=== PATIENT | female | born 1955 | race American Indian/Alaskan Native ===

== ENCOUNTER 2017-09-25 20:40 | Emergency (ER) | payer MEDICARE ==
[2017-09-25] MEDS ORDERED: NACL 0.9% 1000 ML 1,000 ML IV ONE (20:56)
[2017-09-25] MEDS ORDERED: VASELINE LIP THERAPY TP PRN (20:58)
[2017-09-25] MEDS ORDERED: ARTIFICIAL TEARS OPHTH OINT OU PRN (20:58)
[2017-09-25] MEDS ORDERED: NACL 0.9% 500 ML IV SCH (21:00)
--- NOTE | 2017-09-25 21:04 | Emergency Department Report ---
ED CPR HPI - General Stated Complaint: UNRESPONSIVE Time Seen by Provider: 09/25/17 20:40 Source: family Mode of arrival: Wheelchair Limitations: Altered Mental Status, Physical Limitation, Other (clinical situation) - History of Present Illness Initial Comments: She is 60-year-old female multiple problems was brought by family POV for decreased responsiveness and low blood pressure. On initial presentation patient was found to be in full arrest. Per family member patient began complaining of abdominal pain and not feeling well all day today and patient recently started dialysis 4 weeks ago. And had a vas cath placed in her right chest 4 weeks ago MD Complaint: found unresponsive, stopped breathing, collapsed during rest -: minute(s) Place: home, other Bystander CPR Performed: No AED Applied by Bystander/Pipe Fitter Soft Copper: No ROSC in the Field: No Associated Symptoms: abdominal pain - Related Data Home Medications Medication Instructions Recorded Confirmed Last Taken Aspirin [Aspirin TAB] 325 mg PO DAILY 06/11/13 06/11/13 06/10/13 09:00 325 Previous Rx's Medication Instructions Recorded Last Taken Type Amlodipine Besylate [Norvasc] 5 mg PO DAILY #30 tab 06/19/13 Unknown Rx Calcium Carbonate [Tums] 2,000 mg PO Q6H #120 tablet 06/19/13 Unknown Rx Ergocalciferol [Vitamin D2] 50,000 unit PO WeSa@1000 #60 06/19/13 Unknown Rx capsule Magnesium Oxide [Mag-Ox] 1,600 mg PO BID #240 tablet 06/19/13 Unknown Rx Sodium Bicarbonate 650 mg PO TID #90 tablet 06/19/13 Unknown Rx Allergies Allergy/AdvReac Type Severity Reaction Status Date / Time No Known Allergies Allergy Unverified 06/11/13 16:39 ED Review of Systems ROS: Stated complaint: UNRESPONSIVE Other details as noted in HPI Comment: Unobtainable due to pts medical conditions ED Past Medical Hx - Past Medical History Previous Medical History?: Yes Hx Hypertension: Yes Hx Congestive Heart Failure: No Hx Diabetes: No Hx Asthma: No Hx COPD: No Additional medical history: heart value - Surgical History Past Surgical History?: Yes - Family History Family history: no significant - Social History Smoking Status: Current Every Day Smoker Substance Use Type: None - Medications Home Medications: Home Medications Medication Instructions Recorded Confirmed Last Taken Type Aspirin [Aspirin TAB] 325 mg PO DAILY 06/11/13 06/11/13 06/10/13 09:00 History 325 Amlodipine Besylate [Norvasc] 5 mg PO DAILY #30 tab 06/19/13 Unknown Rx Calcium Carbonate [Tums] 2,000 mg PO Q6H #120 tablet 06/19/13 Unknown Rx Ergocalciferol [Vitamin D2] 50,000 unit PO WeSa@1000 #60 06/19/13 Unknown Rx capsule Magnesium Oxide [Mag-Ox] 1,600 mg PO BID #240 tablet 06/19/13 Unknown Rx Sodium Bicarbonate 650 mg PO TID #90 tablet 06/19/13 Unknown Rx ED Physical Exam - General Limitations: Altered Mental Status, Physical Limitation, Other (clinical situation) General appearance: obtunded, other (patient unresponsive and in a full arrest) - Head Head exam: Present: atraumatic, normocephalic - Eye Eye exam: Present: other (pupils fixed and dilated) - GI/Abdominal GI/Abdominal exam: Present: soft. Absent: distended ED Course Vital Signs 09/25/17 09/25/17 20:57 21:11 Pulse Rate 92 H Respiratory 18 Rate Blood Pressure 167/25 O2 Sat by Pulse 65 L Oximetry - Reevaluation(s) Reevaluation #1: CPR started and code ran in accordance with ACLS protocols. See code note. Patient intubated, see procedure note. Patient resuscitated patient regained pulse after 3 shocks were delivered and 2 rounds of CPR. Will start post- resuscitation care and adjust as needed. Large amounts of vomitus noted during code. 09/25/17 20:35 Reevaluation #2: Pt arrested again, Patient resuscitated after given 1 round of bicarbonate and epi. blood pressure is 150/80. See code note. See vital signs. We'll continue to monitor patient and adjust treatment as needed. Code ran according to ACLS protocol 09/25/17 21:17 Reevaluation #3: Tension pneumothorax noted. Neurologic decompression done. Chest tube placed shortly after needle decompression. See procedure note for chest tube. . Patient also arrested again. Patient given meds and code ran in accordance with ACLS protocol, patient resuscitated. see vital signs. See nurse's code note 09/25/17 21:50 Reevaluation #4: no pulse noted and pt asystole on monitor. See code note 09/25/17 22:35 0 Reevaluation #5: Patient coded again. Patient coded in accordance with ACLS protocol. Time of 2304. See code note 09/25/17 23:02 - Chest Tube Chest Tube Location: forth interspace Chest Tube Procedure: betadine prep, sterile drapes applied, sterile dressing applied [place] of [employer] [place]: Yes Number of Attempts: 1 Time of Successful Intubation: 22:05 Tube Sutured to Skin: Yes Post Procedure CXR?: Yes - Intubation Time Out Performed: Yes Laryngoscope: fiberoptic video scope Size: 4 Assist Device Used: fiberoptic device ET Tube Size: 7.5 Tube Secured Depth (cm): 22 Tube Secured Location: lips Tube Placement Confirmation: visualized tube passing t, equal breath sounds bilat, no breath sounds over epi, confirmation by capnometr Patient Tolerated Procedure: well Intubation Complications: none ED Medical Decision Making - Lab Data Result diagrams: 09/25/17 21:28 09/25/17 21:28 - EKG Data -: EKG Interpreted by Hi EKG shows normal: sinus rhythm, ST-T waves Rate: tachycardia - EKG Data Interpretation: LVH, other - Radiology Data Radiology results: report reviewed, image reviewed FINDINGS: Heart: Normal. Mediastinum/Vessels: Normal. Lungs/Pleural space: Large right-sided pneumothorax is noted with mild degree shift of mediastinum to the left. Patchy density is noted in the left retrocardiac region. Left pleural spaces clear. Bony thorax: No acute osseous abnormality. Life support devices: A right jugular dual-lumen catheter is identified terminating at the level of cavoatrial junction. Endotracheal tube is terminating about 3.4 centimeters above the mercy. Nasogastric tube is terminating in the stomach. IMPRESSION: Large right-sided tension pneumothorax. Patchy density in the left retrocardiac region most likely represents infiltrative versus atelectatic changes. Follow-up studies are recommended.. Transcribed By: [facility] [place] Dictated By: DUNIA DOE Electronically Authenticated By: DUNIA DOE Signed Date/Time: 09/25/172142 FINDINGS: Heart: Normal. Mediastinum/Vessels: Normal. Lungs/Pleural space: There is interval decrease in the right-sided pneumothorax with a right chest tube is in place. About 20 percent residual pneumothorax is noted. There is also interval improvement in the tension component. Bony thorax: No acute osseous abnormality. Life support devices: Tubes and lines are in place.. IMPRESSION: Interval decrease in the right pneumothorax which is now measured at about 20 percent.. X-ray films reviewed. First x-ray shows tension pneumothorax. Second x-ray shows interval improvement in pneumothorax. - Medical Decision Making 16-year-old brother presents emergency room unresponsive in a full arrest. Chest tube was placed for tension pneumothorax. Patient was also intubated during first arrest. See procedure notes. Patient was coded in accordance with ACLS protocol. Patient was pronounced. Family support given. - Differential Diagnosis cardiac arrest. pneumo. Critical Care Time: Yes Critical care attestation.: If time is entered above; I have spent that time in minutes in the direct care of this critically ill patient, excluding procedure time. Critical Care Time: 60 minutes for cc time. ED Disposition Clinical Impression: Cardiac arrest, Tension pneumothorax Pneumothorax Qualifiers: Pneumothorax type: unspecified pneumothorax Qualified Code(s): J93.9 - Pneumothorax, unspecified Disposition: DC-20 Is pt being admited?: No Does the pt Need Aspirin: No Condition: Critical Time of Disposition: 23:29
[2017-09-25 21:43] LABS: Mean Corpuscular HGB Conc 30 % (30-34); Mean Corpuscular Hemoglobin 35 pg (28-32); Red Blood Count 3.45 M/mm3 (3.65-5.03)
--- NOTE | 2017-09-25 21:49 | XRay Report ---
FINAL REPORT PROCEDURE: XR CHEST 1V AP TECHNIQUE: Chest radiograph anteroposterior view. CPT 24481 HISTORY: Chest Pain COMPARISON: No prior studies are available for comparison. FINDINGS: Heart: Normal. Mediastinum/Vessels: Normal. Lungs/Pleural space: Large right-sided pneumothorax is noted with mild degree shift of mediastinum to the left. Patchy density is noted in the left retrocardiac region. Left pleural spaces clear. Bony thorax: No acute osseous abnormality. Life support devices: A right jugular dual-lumen catheter is identified terminating at the level of cavoatrial junction. Endotracheal tube is terminating about 3.4 centimeters above the mercy. Nasogastric tube is terminating in the stomach. IMPRESSION: Large right-sided tension pneumothorax. Patchy density in the left retrocardiac region most likely represents infiltrative versus atelectatic changes. Follow-up studies are recommended..
[2017-09-25 21:54] LABS: Albumin 2.5 g/dL (3.9-5); Calcium 9.2 mg/dL (8.4-10.2)
[2017-09-25 21:55] LABS: Hemoglobin 12.1 gm/dl (10.1-14.3); Mean Corpuscular Volume 116 fl (79-97); Red Cell Distribution Width 21.8 % (13.2-15.2)
[2017-09-25 22:29] LABS: Chol/HDL Ratio 1.38 %
[2017-09-25 22:38] LABS: Band Neutrophils # (Manual) 0.5 K/mm3; Basophils % (Manual) 0 % (0.0-1.8); Eosinophils % (Manual) 0 % (0.0-4.3); Total Cells Counted 100
[2017-09-25 22:39] LABS: Anisocytosis 1+; Ovalocytes 2+; Poikilocytosis 2+
[2017-09-25 22:40] LABS: Platelet Estimate Appears Decreased; Schistocytes 1+; Tear Drop Cells Few
[2017-09-25 22:41] LABS: Giant Platelets Few; Macrocytosis 1+
[2017-09-25 22:42] LABS: Platelet Count 78 K/mm3 (140-440)
[2017-09-25] MEDS ORDERED: SODIUM BICARBONATE IV ONE (23:00)
[2017-09-25] MEDS ORDERED: ADRENALIN ONE (23:00)
--- NOTE | 2017-09-25 23:05 | XRay Report ---
FINAL REPORT PROCEDURE: XR CHEST 1V AP TECHNIQUE: Chest radiograph anteroposterior view. CPT 55362 HISTORY: chest tube placement/ COMPARISON: No prior studies are available for comparison. FINDINGS: Heart: Normal. Mediastinum/Vessels: Normal. Lungs/Pleural space: There is interval decrease in the right-sided pneumothorax with a right chest tube is in place. About 20 percent residual pneumothorax is noted. There is also interval improvement in the tension component. Bony thorax: No acute osseous abnormality. Life support devices: Tubes and lines are in place.. IMPRESSION: Interval decrease in the right pneumothorax which is now measured at about 20 percent..
[2017-09-26 02:10] VITALS: BP 167/25
== END 2017-09-26 02:55 ==
LOC: ED 20:40
DX: I46.9 Cardiac arrest, cause unspecified (principal); J93.9 Pneumothorax, unspecified; I10 Essential (primary) hypertension; F17.200 Nicotine dependence, unspecified, uncomplicated; Z79.82 Long term (current) use of aspirin
CPT/HCPCS: 31500; 32551; 36415; 71045; 80053; 80061; 84484; 85007; 85025; 92950; 93005; 93010; 96360; 96361; 99291; J0171; J7030; 94002